=== PATIENT | male | born 1980 | race African-American/Black ===

== ENCOUNTER 2019-07-04 19:26 | Emergency (ER) | payer OTHER ==
[~2019-07-04] VITALS: Ht 170.2 cm; Wt 98.0 kg
--- NOTE | 2019-07-04 19:48 | ED.ADGEN ---
Past History Past Medical History: No Pertinent History Past Surgical History: No Surgical History Alcohol Use: None Drug Use: None Adult General Chief Complaint Chief Complaint ".. I got this rash on my hands..." [facility] HPI Patient is a 38 year old male who presents with above hx and complaints of contact dermatitis. Patient has been wearing latex gloves at work. Patient has long-standing history of eczema. No history immunosuppression. No history of HIV. No history of recent travel. No ill contacts.. Early in the week he cleaned tar off hands with gasoline. No other specific allergy exposures. Review of Systems Review of Systems Constitutional: Denies fever or chills [] Eyes: Denies change in visual acuity, redness, or eye pain [] HENT: Denies nasal congestion or sore throat [] Respiratory: Denies cough or shortness of breath [] Cardiovascular: No additional information not addressed in HPI [] GI: Denies abdominal pain, nausea, vomiting, bloody stools or diarrhea [] : Denies dysuria or hematuria [] Musculoskeletal: Denies back pain or joint pain [] Integument: Complaints of eczema exacerbation and contact dermatitis to hands Neurologic: Denies headache, focal weakness or sensory changes [] Endocrine: Denies polyuria or polydipsia [] All other systems were reviewed and found to be within normal limits, except as documented in this note. Family History Family History Noncontributory Current Medications Current Medications See nursing for home meds Allergies Allergies Allergies Coded Allergies Type Severity Reaction Last Updated Verified No Known Drug Allergies 07/04/19 No Physical Exam Physical Exam Constitutional: Well developed, well nourished, no acute distress, non-toxic appearance. [] HENT: Normocephalic, atraumatic, bilateral external ears normal, oropharynx moist, no oral exudates, nose normal. Eczema of scalp Eyes: PERRLA, EOMI, conjunctiva normal, no discharge. [] Neck: Normal range of motion, no tenderness, supple, no stridor. [] Cardiovascular:Heart rate regular rhythm, no murmur [] Lungs & Thorax: Bilateral breath sounds equal at apex with few scattered wheezes on auscultation [] Abdomen: Bowel sounds normal, soft, no tenderness, no masses, no pulsatile masses. [] Skin: Warm, dry, no erythema, diffuse eczema on body. Tattoos. Has marked exacerbation of eczema and dermatitis of hands Back: No tenderness, no CVA tenderness. [] Extremities: No tenderness, no cyanosis, no clubbing, ROM intact, no edema. [] Neurologic: Alert and oriented X 3, normal motor function, normal sensory function, no focal deficits noted. [] Psychologic: Affect anxious, judgement normal, mood normal. [] Current Patient Data Vital Signs Vital Signs Date Time Temp Pulse Resp B/P (MAP) Pulse Ox O2 Delivery O2 Flow Rate FiO2 07/04/19 21:25 54 18 160/76 (104) 99 Room Air 07/04/19 19:26 98.2 EKG EKG [] Radiology/Procedures Radiology/Procedures [] Course & Med Decision Making Course & Med Decision Making Pertinent Labs and Imaging studies reviewed. (See chart for details) Patient to stop wearing latex gloves at work. Avoid further contact with latex products if at all possible. Patient use triamcinolone cream daily. Use bearing amounts. Massage and to scalp and applied to areas of extreme exposure breakdown. Patient apply a and D ointment 4 times a day to scalp and eczema. Patient is due a dandruff shampoo only once a week to scalp. Patient follow-up primary care. Patient return of any concerns. Patient encouraged not smoke. [] Final Impression Final Impression 1. Eczema 2. Contact dermatitis 3. Suspect latex allergy[] Dragon Disclaimer Dragon Disclaimer This electronic medical record was generated, in whole or in part, using a voice recognition dictation system. Dragon Disclaimer This chart was dictated in whole or in part using Voice Recognition software in a busy, high-work load, and often noisy Emergency Department environment. It may contain unintended and wholly unrecognized errors or omissions. Discharge Summary Visit Information Final Diagnosis Problems Medical Problems: (1) Contact dermatitis and eczema Status: Acute (2) Latex allergy Status: Acute Brief Hospital Course Allergies Allergies Coded Allergies Type Severity Reaction Last Updated Verified No Known Drug Allergies 07/04/19 No Vital Signs Vital Signs Date Time Temp Pulse Resp B/P (MAP) Pulse Ox O2 Delivery O2 Flow Rate FiO2 07/04/19 21:25 54 18 160/76 (104) 99 Room Air 07/04/19 19:26 98.2 Brief Hospital Course Mr. Kuafman is a 38 old male who presented with eczema and contact dermatitis. Discharge Information Condition at Discharge: Stable Disposition/Orders: D/C to Home Dischare Medications Active Scripts Active Triamcinolone Acetonide 80 Gm Oint...g. 160 Gm TP APPLY DAILY 90 Days JOJO LOZOYA MD Jul 04, 2019 19:47
[2019-07-04] MEDS ORDERED: TRIA80OI TP (21:07)
[2019-07-04 21:25] VITALS: BP 160/76
== END 2019-07-04 21:25 | disposition home or self-care (01) ==
LOC: ER 19:26
DX: L25.9 Unspecified contact dermatitis, unspecified cause (principal); Z91.040 Latex allergy status
CPT/HCPCS: 99283